=== PATIENT | female | born 1995 | race Caucasian/White ===

== ENCOUNTER 2016-12-30 23:59 | Emergency (ER) | payer MEDICAID ==
[2016-12-31] MEDS ORDERED: NS 1,000 ML IV ONE (00:16)
--- NOTE | 2016-12-31 00:53 | EDPHY ---
H & P Stated Complaint: possible kidney infection - Personal History LMP (Females 10-55): IUD In Place Current Tetanus/Diphtheria Vaccine: Yes Tetanus Vaccine Date: 2009 - Medical/Surgical History Hx Asthma: No Hx Chronic Respiratory Disease: No Hx Diabetes: No Hx Cardiac Disease: No Hx Renal Disease: No Hx Cirrhosis: No Hx Alcoholism: No Hx HIV/AIDS: No Hx Splenectomy or Spleen Trauma: No Other PMH: pcos, mirena,. PMHx: HSV 1&2, depression. PSHx: wisdom tooth extraction 2015 - Social History Smoking Status: Current every day smoker HPI/ROS: Chief complaint: Possible kidney infection History of present illness: This is a 21-year-old female who presents to the emergency department for evaluation of what she believes is a possible kidney infection. Patient reports over the last 2 days she has developed urinary symptoms including dysuria, urinary frequency and urinary hesitancy. Over the last day she has started to develop flank pain and back pain on both sides. She does report she has been engaged in frequent sexual intercourse recently and has not been urinating frequently afterwards and is concerned this has given her an infection. She denies other associated signs or symptoms including no fevers, no abdominal pain, no nausea, vomiting or diarrhea. Above was negative review of systems: A 10 point review of systems was obtained and other (Anuj Queen) - Physical Exam Exam: General Appearance: Alert, Nontoxic. Eyes: Pupils equal and round no pallor or injection. ENT, Mouth: Mucous membranes moist. Respiratory: There are no retractions, lungs are clear to auscultation. Cardiovascular: Regular rate and rhythm. Gastrointestinal: Abdomen is soft and nontender, no masses, bowel sounds normal. Genitourinary: Mild CVA tenderness bilaterally. Neurological: Alert and oriented x4. Strength and sensation intact and symmetrical. Skin: Warm and dry, no rashes. Musculoskeletal: Neck is supple nontender. Extremities are symmetrical, full range of motion. Psychiatric: Patient is oriented X 3, there is no agitation. (Anuj Queen) Constitutional: Initial Vital Signs Temperature (C) 38.1 C 12/31/16 00:03 Heart Rate 108 H 12/31/16 00:03 Respiratory Rate 16 12/31/16 00:03 Blood Pressure 132/82 H 12/31/16 00:03 O2 Sat (%) 99 12/31/16 00:03 O2 Delivery Mode Room Air Allergies/Adverse Reactions: No Known Allergies Allergy (Unverified 12/08/14 08:18) Home Medications: Medication Instructions Recorded Acyclovir 01/10/16 Cephalexin [Keflex (*)] 500 mg PO Q6H #40 cap 12/31/16 Wellbutrin 100mg (*) 12/31/16 oxyCODONE/APAP 5/325 [Percocet 1 - 2 tab PO Q4H PRN #10 tab 12/31/16 5/325 (*)] Medical Decision Making ED Course/Re-evaluation: Patient seen under the supervision of my secondary supervising physician Dr. Juan Lozoya. Patient presents to the emergency department concerned she has a kidney infection. She is nontoxic. An IV is established an IV hydration is begun. Baseline blood studies and urinalysis are ordered and pending at time of dictation. Care of patient will be turned over to my attending physician Dr. Juan Lozoya at end of shift. (Anuj Queen) Urinalysis consistent with UTI. Will give ceftriaxone 1 g IV. Will also give some Toradol and some morphine for analgesia. Patient will be discharged home on Keflex. She will follow up with primary care physician in 2 days for re- evaluation. (Juan Hernandez) Differential Diagnosis: Included but not limited to cystitis, pyelonephritis, nephrolithiasis, an associated complications (Anuj Queen) - Data Points Laboratory Results: Laboratory Results 12/31/16 00:35 12/31/16 00:35 12/31/16 12/31/16 12/31/16 00:35 00:35 00:35 WBC RBC Hgb Hct MCV MCH MCHC RDW Plt Count MPV Neut % (Auto) Lymph % (Auto) [place] % (Auto) Eos % (Auto) Baso % (Auto) Nucleat RBC Rel Count Absolute Neuts (auto) Absolute Lymphs (auto) Absolute Monos (auto) Absolute Eos (auto) Absolute Basos (auto) Absolute Nucleated RBC Immature Gran % Immature Gran # Sodium 142 mEq/L mEq/L (134-144) Potassium 3.9 mEq/L mEq/L (3.5-5.2) Chloride 107 mEq/L mEq/L (97-110) Carbon Dioxide 22 mEq/l mEq/l (22-31) Anion Gap 13 mEq/L mEq/L (8-16) BUN 12 mg/dL mg/dL (7-23) Creatinine 0.7 mg/dL mg/dL (0.6-1.0) Estimated GFR > 60 Glucose 78 mg/dL mg/dL (70-100) Calcium 9.7 mg/dL mg/dL (8.5-10.4) Beta HCG, Qual NEGATIVE Urine Color PALE YELLOW Urine Appearance HAZY Urine pH 7.0 (5.0-7.5) Ur Specific [place] 1.004 (1.002-1.030) Urine Protein NEGATIVE (NEGATIVE) Urine Ketones NEGATIVE (NEGATIVE) Urine Blood 2+ H (NEGATIVE) Urine Nitrate NEGATIVE (NEGATIVE) Urine Bilirubin NEGATIVE (NEGATIVE) Urine Urobilinogen NEGATIVE EU EU (0.2-1.0) Ur Leukocyte Esterase 3+ H (NEGATIVE) Urine RBC 50-182 /hpf H /hpf (0-3) Urine WBC 50-182 /hpf H /hpf (0-3) Ur Epithelial Cells TRACE /lpf /lpf (NONE-1+) Urine Bacteria TRACE /hpf H /hpf (NONE SEEN) Ur Culture Indicated? INDICATED H (NI) Urine Glucose NEGATIVE (NEGATIVE) 12/31/16 00:35 WBC 17.70 10^3/uL H 10^3/uL (3.80-9.50) RBC 4.55 10^6/uL 10^6/uL (4.18-5.33) Hgb 14.6 g/dL g/dL (12.6-16.3) Hct 41.7 % % (38.0-47.0) MCV 91.6 fL fL (81.5-99.8) MCH 32.1 pg pg (27.9-34.1) MCHC 35.0 g/dL g/dL (32.4-36.7) RDW 11.8 % % (11.5-15.2) Plt Count 249 10^3/uL 10^3/uL (150-400) MPV 10.7 fL fL (8.7-11.7) Neut % (Auto) 77.3 % H % (39.3-74.2) Lymph % (Auto) 13.2 % L % (15.0-45.0) [place] % (Auto) 7.2 % % (4.5-13.0) Eos % (Auto) 1.5 % % (0.6-7.6) Baso % (Auto) 0.4 % % (0.3-1.7) Nucleat RBC Rel Count 0.0 % % (0.0-0.2) Absolute Neuts (auto) 13.70 10^3/uL H 10^3/uL (1.70-6.50) Absolute Lymphs (auto) 2.33 10^3/uL 10^3/uL (1.00-3.00) Absolute Monos (auto) 1.27 10^3/uL H 10^3/uL (0.30-0.80) Absolute Eos (auto) 0.26 10^3/uL 10^3/uL (0.03-0.40) Absolute Basos (auto) 0.07 10^3/uL 10^3/uL (0.02-0.10) Absolute Nucleated RBC 0.00 10^3/uL 10^3/uL (0-0.01) Immature Gran % 0.4 % % (0.0-1.1) Immature Gran # 0.07 10^3/uL 10^3/uL (0.00-0.10) Sodium Potassium Chloride Carbon Dioxide Anion Gap BUN Creatinine Estimated GFR Glucose Calcium Beta HCG, Qual Urine Color Urine Appearance Urine pH Ur Specific [place] Urine Protein Urine Ketones Urine Blood Urine Nitrate Urine Bilirubin Urine Urobilinogen Ur Leukocyte Esterase Urine RBC Urine WBC Ur Epithelial Cells Urine Bacteria Ur Culture Indicated? Urine Glucose Medications Given: Discontinued Medications Sodium Chloride (Ns) 1,000 mls @ 0 mls/hr IV ONCE ONE PRN Reason: Wide Open Stop: 12/31/16 00:17 Last Admin: 12/31/16 00:41 Dose: 1,000 mls Ceftriaxone Sodium/Dextrose (Rocephin 1 Gm (Premix)) 50 mls @ 100 mls/hr IV EDNOW ONE PRN Reason: Protocol Stop: 12/31/16 02:21 Last Admin: 12/31/16 02:02 Dose: 50 mls Ketorolac Tromethamine (Toradol) 30 mg IVP EDNOW ONE Stop: 12/31/16 01:56 Last Admin: 12/31/16 02:00 Dose: 30 mg Morphine Sulfate (Morphine) 4 mg IVP ONCE ONE Stop: 12/31/16 01:55 Last Admin: 12/31/16 02:00 Dose: 4 mg Departure - Departure Disposition: Home, Routine, Self-Care Clinical Impression: Pyelonephritis Condition: Good Instructions: Urinary Tract Infection in Women (ED), Kidney Infection (ED) Additional Instructions: Follow up with primary care physician in 1-2 days for re-evaluation. Return to the emergency department for increasing pain, fevers, chills, nausea, vomiting, any other concerns. Referrals: MILTON HARMAN [Other] - As per Instructions Prescriptions: Cephalexin [Keflex (*)] 500 mg PO Q6H #40 cap oxyCODONE/APAP 5/325 [Percocet 5/325 (*)] 1 - 2 tab PO Q4H PRN #10 tab PRN Reason: Pain, Severe
[2016-12-31 00:54] LABS: COLOR PALE YELLOW; LEUKOCYTE ESTERASE,URINE 3+ (NEGATIVE); NITRITE,URINE NEGATIVE (NEGATIVE)
[2016-12-31 00:57] LABS: % IMMATURE GRANULYOCYTES 0.4 % (0.0-1.1); ABSOLUTE IMMATURE GRANULOCYTES 0.07 10^3/uL (0.00-0.10); ADD DIFF? NO; ADD MORPH? NO; ADD SCAN? NO; ATYPICAL LYMPHOCYTE FLAG 0 (0-99); FRAGMENT RBC FLAG 0 (0-99); HEMATOCRIT 41.7 % (38.0-47.0); HEMOGLOBIN 14.6 g/dL (12.6-16.3); LEFT SHIFT FLG 0 (0-99); LIPEMIA HEMOLYSIS FLAG 90 (0-99); MEAN CELL HEMOGLOBIN 32.1 pg (27.9-34.1); MEAN CELL VOLUME 91.6 fL (81.5-99.8); MEAN PLATELET VOLUME 10.7 fL (8.7-11.7); PLATELET CLUMPS FLAG 10 (0-99); PLATELET COUNT 249 10^3/uL (150-400); RED BLOOD CELL COUNT 4.55 10^6/uL (4.18-5.33); RED CELL DISTRIBUTION WIDTH 11.8 % (11.5-15.2)
[2016-12-31 01:04] LABS: ANION GAP 13 mEq/L (8-16); CALCIUM 9.7 mg/dL (8.5-10.4); CARBON DIOXIDE 22 mEq/l (22-31); CHLORIDE 107 mEq/L (97-110); CREATININE 0.7 mg/dL (0.6-1.0); GLOMERULAR FILTRATION RATE > 60; GLUCOSE 78 mg/dL (70-100); POTASSIUM 3.9 mEq/L (3.5-5.2); SODIUM 142 mEq/L (134-144)
[2016-12-31 01:23] LABS: BACTERIA TRACE /hpf (NONE SEEN); RBC,URINE 50-182 /hpf (0-3); WBC,URINE 50-182 /hpf (0-3)
[2016-12-31] MEDS ORDERED: KETOROLAC 30 MG/1 ML SDV IVP ONE (01:55)
[2016-12-31 03:10] VITALS: BP 112/74; PULSE 93; RESP 20; TEMP 98.8; O2SAT 96
== END 2016-12-31 03:05 | disposition home or self-care (01) ==
DX: N12 Tubulo-interstitial nephritis, not specified as acute or chronic (principal); F17.200 Nicotine dependence, unspecified, uncomplicated
CPT/HCPCS: 96365; J0696; J1885

== ENCOUNTER 2017-08-20 22:53 | Emergency (ER) | payer MEDICAID ==
[2017-08-20 22:58] VITALS: TEMP 99
[2017-08-20] MEDS ORDERED: IPRATROPIUM/ALBUTEROL 3 ML DEYVIAL IH ONE (23:08)
--- NOTE | 2017-08-20 23:13 | EDPHY ---
H & P Stated Complaint: Dxd w/bronchitis at [facility], worsening Time Seen by Provider: 08/20/17 23:00 HPI/ROS: HPI The patient presents with cough which has been present for the last 8-9 days which started slowly and has been constant. She has a cough which is sometimes dry and sometimes productive of a yellowish sputum. This is moderate in severity. She has associated rhinorrhea, sore throat, low-grade fevers. She denies any sick contacts. [facility] and has been using Tylenol, cough drops, teas. She feels that the albuterol inhaler that she was issued does not helping her symptoms.. REVIEW OF SYSTEMS Constitutional: No fever, no chills. Eyes: No discharge. ENT: No sore throat. Cardiovascular: No chest pain, no palpitations. Respiratory: No cough, no shortness of breath. Gastrointestinal: No abdominal pain, no vomiting. Genitourinary: No hematuria. Musculoskeletal: No back pain. Skin: No rashes. Neurological: No headache. PMHx: Healthy Soc Hx: College student PHYSICAL General Appearance: Alert, no distress Eyes: Pupils equal and round no pallor or injection ENT, Mouth: Mucous membranes moist Respiratory: There are no retractions, lungs are clear to auscultation Cardiovascular: Regular rate and rhythm Gastrointestinal: Abdomen is soft and non-tender, no masses, bowel sounds normal Neurological: A&O, moves all extremities Skin: Warm and dry, no rashes Musculoskeletal: Neck is supple non tender Extremities: symmetrical, full range of motion Psychiatric: Patient is oriented X 3, there is no agitation Source: Patient Exam Limitations: No limitations - Personal History LMP (Females 10-55): Now Current Tetanus/Diphtheria Vaccine: Yes Tetanus Vaccine Date: 2009 - Medical/Surgical History Hx Asthma: No Hx Chronic Respiratory Disease: No Hx Diabetes: No Hx Cardiac Disease: No Hx Renal Disease: No Hx Cirrhosis: No Hx Alcoholism: No Hx HIV/AIDS: No Hx Splenectomy or Spleen Trauma: No Other PMH: PMHx: HSV 1&2, depression, on nexplanon, PCOS. PSHx: wisdom tooth extraction 2015 - Social History Smoking Status: Current every day smoker Constitutional: Initial Vital Signs Temperature (C) 37.2 C 08/20/17 22:55 Heart Rate 88 08/20/17 22:55 Respiratory Rate 16 08/20/17 22:55 Blood Pressure 125/82 H 08/20/17 22:55 O2 Sat (%) 95 08/20/17 22:55 O2 Delivery Mode Room Air Allergies/Adverse Reactions: gold sodium thiomalate Allergy (Verified 08/20/17 22:54) Home Medications: Medication Instructions Recorded Acyclovir 01/10/16 Wellbutrin 100mg (*) 12/31/16 Benzonatate [Tessalon Pearles (RX)] 100 mg PO Q6H PRN #30 cap 08/20/17 CLONAZEPAM 08/20/17 Medical Decision Making - Diagnostics Imaging Results: Imaging Impressions Chest X-Ray 08/20/17 23:08 Impression: Normal. Differential Diagnosis: 22-year-old female who presents from home with 8-9 days of cough associated with rhinorrhea, sore throat, low-grade fevers. Previously diagnosed with bronchitis. On exam, she has normal vital signs, is not hypoxic is generally well appearing with clear breath sounds bilaterally. Differential diagnosis includes viral URI, influenza, pneumonia. In the emergency room patient was given a DuoNeb with some improvement in symptoms. She felt slightly better. Chest x-ray was performed showing no infiltrate. I feel she likely has a viral URI. Influenza is also a possibility , however with 8-9 days of symptoms I would not treat her. I have advised her to continue using albuterol and ibuprofen or Tylenol as needed. - Data Points Medications Given: Discontinued Medications Albuterol/Ipratropium (Duoneb) 3 ml IH EDNOW ONE Stop: 08/20/17 23:09 Last Admin: 08/20/17 23:13 Dose: 3 ml Departure - Departure Disposition: Home, Routine, Self-Care Clinical Impression: Cough, Viral URI Condition: Good Instructions: Cold Symptoms (ED) Additional Instructions: Please return to the emergency department if your worse in any way. You should take ibuprofen 400 mg with acetaminophen 650 mg every 6 hours for any pain in her chest. Referrals: MILTON HARMAN [Other] - As per Instructions Stand Alone Forms: School Excuse Prescriptions: Benzonatate [Tessalon Pearles (RX)] 100 mg PO Q6H PRN #30 cap PRN Reason: Cough, Mild
[2017-08-21 00:03] VITALS: BP 125/74; PULSE 98; RESP 20; O2SAT 94
== END 2017-08-21 00:03 | disposition home or self-care (01) ==
DX: J06.9 Acute upper respiratory infection, unspecified (principal); F17.200 Nicotine dependence, unspecified, uncomplicated

== ENCOUNTER 2017-10-12 22:19 | Emergency (ER) | payer OTHER, MEDICAID ==
[2017-10-12 22:23] VITALS: BP 123/107; PULSE 97; RESP 18; TEMP 99.1; O2SAT 96
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
== END 2017-10-12 23:17 | disposition home or self-care (01) ==
DX: S09.90XA Unspecified injury of head, initial encounter (principal); S16.1XXA Strain of muscle, fascia and tendon at neck level, initial encounter; V49.49XA Driver injured in collision with other motor vehicles in traffic accident, initial encounter; Y92.410 Unspecified street and highway as the place of occurrence of the external cause; Y99.8 Other external cause status; Y93.89 Activity, other specified